=== PATIENT | male | born 1950 | race Caucasian/White ===

== ENCOUNTER 2019-09-03 14:21 | Inpatient (IN) | payer MEDICARE ==
[~2019-09-03 14:21] MED LIST: Iopamidol-370 76% 500 ML 1 ML ONE
[2019-09-03 15:47] LABS: CKMB 5.4 ng/mL (0-6.6)
[2019-09-03] MEDS ORDERED: Enoxaparin Sodium 100 MG/ML SYRINGE ONE ×2 (16:24→16:26)
--- NOTE | 2019-09-03 16:28 | CT ---
CT arteriogram chest with IV contrast and 3-D imaging HISTORY: Chest pain. Elevated d-dimer. FINDINGS: Large filling defects are present within the pulmonary arteries of each lobe. High clot bur den on the right. Moderate clot burden on the left. Right ventricle is unremarkable. Good contrast opacification of the thoracic aorta with normal branching of the great vessels. No focal parenchymal lung mass, infiltrate, pleural fluid, or pneumothorax. Nonspecific lymph nodes s cattered about the mediastinum. IMPRESSION: Bilateral pulmonary emboli with moderate to high overall clot burden. Findings were called to Dr. Manzano in the emergency department at 1616 hours. Code CR.
[2019-09-03] MEDS ORDERED: Bisacodyl 5 MG TAB PO PRN (17:26)
[2019-09-03] MEDS ORDERED: HYDROcodone/Acetaminophen 7.5/325 mg Tablet PO PRN (17:26)
[2019-09-03] MEDS ORDERED: HYDROcodone/Acetaminophen 5/325 mg Tablet PO PRN (17:26)
[2019-09-03] MEDS ORDERED: Calcium Carbonate 500 MG ChewTAB PO PRN (17:26)
[2019-09-03] MEDS ORDERED: Ondansetron PF 4 MG/2 ML Vial IVP PRN (17:26)
[2019-09-03] MEDS ORDERED: Ondansetron ODT 4 MG TAB PO PRN (17:26)
[2019-09-03] MEDS ORDERED: diphenhydrAMINE 25 MG CAP PO PRN (17:32)
[2019-09-03] MEDS ORDERED: Benzonatate 100 MG CAP PO PRN (17:32)
[2019-09-03] MEDS ORDERED: Melatonin 3 MG TAB PO PRN (17:32)
[2019-09-03] MEDS ORDERED: Labetalol HCl 100 MG/20 ML VIAL SLOW IVP PRN (17:32)
[2019-09-03] MEDS ORDERED: Docusate 100 MG CAP PO PRN (17:32)
--- NOTE | 2019-09-03 17:53 | PDOC.HHP ---
Hospitalist HPI - History of Present Illness Chest pressure and shortness of breath History of Present Illness: Very pleasant 69 year old gentleman with PMHx of enlarged prostate who recently underwent prostate biopsy on of this week presents with chest pressure and shortness of breath. Patient initially presented to [place] and was transferred for higher level of care for elevated troponin and elevated d- dimer. Patient also with PMHx of HTN, HLD, BPH, elevated PSA, and osteoarthritis. Patient status post biopsy of the prostate for an enlarged prostate with irregular shape and an elevated PSA - he has not been formally diagnosed with prostate cancer to date though. After the prostate biopsy, pateint has been more sedentary than normal in recovery. Patient yesterday with simple chores was winded and had to rest. No chest pain or shortness of breath yesterday. Today with walking less than 3 feet he was so short of breath he though he would collapse. Associated mid sternal chest pressure. Patient did not acutually fall, no LOC, no trauma, no palpitations, no definitive chest pain - just describes as pressure. CTA of the chest found to have massive bilateral PE with moderate to large clot burden. I find the patient in the ED, and surprisingly he looks much better in person the on paper. Patient breathing comfortably on room air, though does get winded when talking. Patient surrounded by family and loved ones who are able to aid in history. Patient admitted to ICU for close management. Hospitalist ROS - Review of Systems All other systems reviewed; all pertinent +/- noted in HPI/Subj Hospitalist History - Past Medical History Source: patient, family Cardiac: reports: HTN, Hyperlipidemia. denies: CAD, CHF Pulmonary: reports: high cholesterol, hypertension. 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 Elevated PSA and an irregular shaped prostate who underwent biopsy on 08/31/19) Musculoskeletal: reports: Osteoarthritis Renal/: reports: Benign prostatic enlarg. - Past Surgical History Past Surgical History: reports: Other (Jaw surgery, knee scope, spinal decompression. Prostate biopsy on 08/31/19 for irregular shape and elevated PSA) - Family History Family History: reports: hypertension - Social History Smoking Status: Never smoker Alcohol: reports: Rare Drugs: reports: none Living Situation: With Family Domestic Violence: Negative Activity level: independent ambulation - Exam General Appearance: NAD, awake alert Eye: PERRL, anicteric sclera ENT: normocephalic atraumatic, moist mucosa Neck: supple, symmetric, no lymphadenopathy Heart: no murmur, no gallops, no rubs Heart - other findings: Tachycardia Respiratory: CTAB, no wheezes, no rales, no ronchi Respiratory - other findings: Slightly deminished breath sounds at bases Gastrointestinal: soft, non-tender, non-distended, normal bowel sounds, no guarding, no rigidity Extremities: no edema Skin: no lesions, no rashes Neurological: cranial nerve grossly intact, normal sensation to touch, no focal deficits Musculoskeletal: generalized weakness Psychiatric: normal affect, normal behavior, A&O x 3 Hospitalist Results - Labs Lab results: CK-MB (CK-2) 5.4 ng/mL (0-6.6) 09/03/19 14:48 Troponin I 0.133 ng/mL (< 0.028) H 09/03/19 14:48 - Radiology Interpretation CT scan - chest Status: image reviewed by nh Hospitalist H&P A/P - Problem (1) Pulmonary embolism, bilateral Code(s): I26.99 - OTHER PULMONARY EMBOLISM WITHOUT ACUTE COR PULMONALE Status : Acute (2) Shortness of breath Code(s): R06.02 - SHORTNESS OF BREATH Status: Acute (3) Chest pain Code(s): R07.9 - CHEST PAIN, UNSPECIFIED Status: Acute (4) Elevated troponin Code(s): R79.89 - OTHER SPECIFIED ABNORMAL FINDINGS OF BLOOD CHEMISTRY Status : Acute (5) Prostate cancer Code(s): C61 - MALIGNANT NEOPLASM OF PROSTATE Status: Acute (6) Enlarged prostate Code(s): N40.0 - BENIGN PROSTATIC HYPERPLASIA WITHOUT LOWER URINRY TRACT SYMP Status: Acute (7) HTN (hypertension) Code(s): I10 - ESSENTIAL (PRIMARY) HYPERTENSION Status: Chronic (8) HLD (hyperlipidemia) Code(s): E78.5 - HYPERLIPIDEMIA, UNSPECIFIED Status: Chronic (9) Osteoarthritis Code(s): M19.90 - UNSPECIFIED OSTEOARTHRITIS, UNSPECIFIED SITE Status: Chronic - Plan Plan: Plan: Admit to ICU Critical care/ pulmonology consultation, recommendations appreciated Cardiology consultation, recommendations appreciated IV Lovenox 1mg/ kg BID Stat echo to eval for right heart strain, if right heart strain present may need to evaluate for thrombectomy supplemental oxygen as needed Patient with prostate biopsy on 08/31/19 and has been more sedentary than he would have been otherwise With irregularly shaped enlarged prostate and elevated PSA, he may be hypercoagulable from CA Colonoscopy about 10 years ago reported as normal Skin CA, s/p excision No other known CA Pain control Resume home medications as able Flomax for BPH Lisinopril for BP Atorvastatin for cholesterol GI PPX
[2019-09-03 18:34] LABS: Troponin I 0.077 ng/mL (< 0.028)
[2019-09-03 19:00] LABS: INR-International Normal Ratio 1.1; PTT 37.6 SEC (22.9-36.1); Prothrombin Time 14.2 SEC (12.0-14.7)
[2019-09-03 19:08] LABS: D-Dimer Test 12.27 *mcg/mL (0.27-0.43)
[2019-09-03 21:17] VITALS: BMI 24.6
[2019-09-03 21:40] LABS: Troponin I 0.089 ng/mL (< 0.028)
[2019-09-03] MEDS: Famotidine/PF 20 mg/2ml Vial SLOW IVP SCH (21:48)
[2019-09-03] MEDS: Famotidine 20 MG TAB PO SCH (21:49)
[2019-09-03] MEDS: Enoxaparin Sodium 80 MG/0.8 ML SYRINGE SC SCH (21:49)
[2019-09-04 03:53] LABS: #Eosinphils 0.1 thou/uL (0.0-0.7); #Lymphocytes 1.6 thou/uL (1.20-3.40); #Monocytes 0.6 thou/uL (0.11-0.59); #Neutrophils 3.6 thou/uL (1.40-6.50); %Basophils 0.4 % (0.0-1.0); %Eosinophils 1.8 % (0.0-10.0); %Monocytes 9.6 % (0.0-10.0); %Neutrophils 61.2 % (42.0-75.0); Hemoglobin 13.2 g/dL (14.0-18.0); Mean Corpuscular HGB CONC 34.1 g/dL (32.0-36.0); Mean Corpuscular Hemoglobin 30.6 pg (27.0-31.0); Mean Platelet Volume 6.8 fL (7.4-10.4); Platelet Count 172 thou/uL (130-400); RBC Distribution Width 11.8 % (11.5-14.5); Red Blood Cell (RBC) Count 4.31 mill/uL (4.70-6.10); White Blood Cell (WBC) Count 5.9 thou/uL (4.8-10.8)
[2019-09-04 04:02] LABS: Anion Gap 13 mmol/L (10-20); BUN (Urea Nitrogen) 15 mg/dL (8.4-25.7); Calc. Creatinine Clearance 94 mL/min (70-130); Calcium 8.5 mg/dL (7.8-10.44); Carbon Dioxide 22 mmol/L (23-31); Chloride 110 mmol/L (98-107); Estimated GFR-MDRD Greater than 90; Glucose 94 mg/dL (80-115); Sodium 141 mmol/L (136-145)
[2019-09-04] MEDS ORDERED: FLU VACC TS2019-20(65YR UP)/PF 180 MCG/0.5 ML SYRINGE IM ONE (09:00)
[2019-09-04] MEDS ORDERED: Prevnar 13-Val Conj/PF 0.5 ML SYRINGE IM ONE (09:00)
[2019-09-04] MEDS: Famotidine/PF 20 mg/2ml Vial SLOW IVP SCH ×2 (09:35→19:56)
[2019-09-04] MEDS: Enoxaparin Sodium 80 MG/0.8 ML SYRINGE SC SCH ×2 (09:51→20:00)
[2019-09-04] MEDS: Famotidine 20 MG TAB PO SCH ×2 (09:51→20:00)
--- NOTE | 2019-09-04 10:05 | ULT ---
Bilateral lower extremity venous duplex sonogram HISTORY: Pulmonary emboli. Bilateral leg pain and edema. FINDINGS: Right leg: Good color and spectral Doppler flow within the common femoral, femoral and deep femoral, popliteal and posterior tibial veins. Incomplete compressibility of the right popliteal vein were internal echoes are also present. Left leg: Occlusive thrombus within the femoral vein and popliteal vein. Good color and spectral Dopp ler flow within the common femoral vein and greater saphenous junction and the posterior tibial vein. IMPRESSION: DVT involving each lower extremity, left greater than right, as detailed above.
[2019-09-04] MEDS: Acetaminophen 325 MG TAB PO PRN ×2 (12:03→19:57)
[2019-09-04 12:29] LABS: Cardiolipin IgA Ab 1.3 APL-U/mL (<14 Negative); Cardiolipin IgG Ab 0.6 GPL-U/mL (<10 Negative); Cardiolipin IgM Ab 1.2 MPL-U/mL (<10 Negative); EliA APS New Method **** NEW METHOD ****
[2019-09-04 13:15] LABS: Protein C Activity 97 % (78-152)
--- NOTE | 2019-09-04 14:10 | CON ---
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 No fever or chills. Then, went to the ER in [place]. His EKG was unremarkable. The chest x-ray was normal. He had a CT angio done, which showed bilateral pulmonary emboli. He was given Lovenox and transferred here, he presents to the ICU. PAST MEDICAL HISTORY: Pertinent for recent prostate biopsy, hypertension, and hyperlipidemia. PAST SURGICAL HISTORY: Knee surgery, spinal decompression. SOCIAL HISTORY: Alcohol, social. Tobacco, former smoker, did not smoke much. HOME MEDICATIONS: Include; 1. Flomax 0.4. 2. Tizanidine 2 mg. 3. Prinivil 20. 4. Atorvastatin 10. 5. Flexeril 10 three times a day. ALLERGIES: NONE. SOCIAL AND FAMILY HISTORY: Otherwise, unremarkable. No previous history of clots, etc. History of blood clots in the family. PHYSICAL EXAMINATION: VITAL SIGNS: Saturations are 97% on room air, blood pressure 144/83, respiratory rate of 18. CHEST: No wheezing or crackles. CARDIAC: Normal S1 and S2. No gallops. ABDOMEN: No masses. LABORATORY DATA: His white count is 5000, H and H are normal, and platelet count is normal. Chemistry profile is normal. Troponin is slightly elevated. IMAGING DATA: CT angio shows bilateral pulmonary emboli. Echocardiogram shows normal EF, normal right ventricular size. ASSESSMENT: 1. Bilateral pulmonary emboli, etiology unclear. 2. Recent prostate biopsy. 3. Hypertension. 4. High cholesterol. 5. Chronic back issues. PLAN: Continue Lovenox for another 24 to 48 hours, switch to Eliquis, six months of anticoagulation minimum. This is 70 minutes consultation, 50% direct patient care. Job ID: [id number]
--- NOTE | 2019-09-04 15:23 | PDOC.HOSPP ---
- Subjective Encounter Date: 09/04/19 Encounter Time: 15:22 Subjective: Doing fine. No complaints. No SOB. - Objective Vital Signs & Weight: Vital Signs (12 hours) Temp Pulse Ox 09/04/19 15:00 98.1 F 09/04/19 11:00 98.4 F 09/04/19 07:20 97 09/04/19 07:00 98.2 F 09/04/19 04:00 98.1 F Weight Weight 171 lb 15.369 oz Most Recent Monitor Data Heart Rate from ECG 67 NIBP 125/74 NIBP BP-Mean 91 Respiration from ECG 19 SpO2 92 I&O: 09/03/19 09/04/19 09/05/19 06:59 06:59 06:59 Intake Total 240 840 Output Total 850 1600 Balance -610 -760 Result Diagrams: 09/04/19 03:23 09/04/19 03:23 Hospitalist ROS - Medication Medications: Active Medications Generic Name Dose Route Start Last Admin Trade Name Freq PRN Reason Stop Dose Admin Acetaminophen 650 mg 09/03/19 17:26 09/04/19 12:03 Tylenol PO 650 mg Q4H PRN Administration Headache/Fever/Mild Pain (1-3) Enoxaparin Sodium 80 mg 09/03/19 21:00 09/04/19 09:51 Lovenox SC 80 mg 0900,2100 LAM Administration Famotidine 20 mg 09/03/19 21:00 09/04/19 09:35 Pepcid SLOW IVP Not Given Q12HR LAM Famotidine 20 mg 09/03/19 21:00 09/04/19 09:51 Pepcid PO 20 mg BID LAM Administration - Exam General Appearance: NAD, awake alert Heart: RRR, no murmur, no gallops, no rubs, normal peripheral pulses Respiratory: CTAB, no wheezes, no rales, no ronchi, normal chest expansion, no tachypnea, normal percussion Gastrointestinal: soft, non-tender, non-distended, normal bowel sounds, no palpable masses, no hepatomegaly, no splenomegaly, no bruit Extremities: no cyanosis, no clubbing, no edema Musculoskeletal: normal tone Psychiatric: normal affect, normal behavior, A&O x 3 Hosp A/P (1) Elevated troponin Code(s): R79.89 - OTHER SPECIFIED ABNORMAL FINDINGS OF BLOOD CHEMISTRY Status : Acute (2) Enlarged prostate Code(s): N40.0 - BENIGN PROSTATIC HYPERPLASIA WITHOUT LOWER URINRY TRACT SYMP Status: Acute (3) Pulmonary embolism, bilateral Code(s): I26.99 - OTHER PULMONARY EMBOLISM WITHOUT ACUTE COR PULMONALE Status : Acute (4) Shortness of breath Code(s): R06.02 - SHORTNESS OF BREATH Status: Acute (5) HLD (hyperlipidemia) Code(s): E78.5 - HYPERLIPIDEMIA, UNSPECIFIED Status: Chronic (6) HTN (hypertension) Code(s): I10 - ESSENTIAL (PRIMARY) HYPERTENSION Status: Chronic (7) DVT (deep venous thrombosis) Code(s): I82.409 - ACUTE EMBOLISM AND THOMBOS UNSP DEEP VN UNSP LOWER EXTREMITY Status: Acute - Plan Bilateral LE DVT's with large burden PE. Amazingly asymptomatic and stable. VSS. Continue with Lovenox and transition to Eliquis tomorrow if doing well. Unclear if he actually has prostate cancer.
--- NOTE | 2019-09-04 15:55 | CON ---
DATE OF CONSULTATION: HISTORY OF PRESENT ILLNESS: Naren Green is a 69-year-old white male, who recently underwent prostate biopsy on 08/31/2019. He apparently had an elevated PSA; however, this does not appear to have been performed at [facility]. He states he has been active since prostate biopsy except he has not done any lifting. He did drive in a car approximately to [place] 2 hours away. He then on 09/03 presented complaining of increased shortness of breath and chest pressure. He initially presented to the [facility] and was transferred here for further evaluation. PAST MEDICAL HISTORY: Remarkable for; 1. Hypertension. 2. Hypercholesterolemia. 3. Possible prostate cancer. 4. No history of diabetes. MEDICATIONS: 1. Atorvastatin 10 daily. 2. Flexeril 10 mg t.i.d. p.r.n. 3. Prinivil 20 mg daily. 4. Flomax 0.4 daily. 5. Tizanidine 2 mg nightly. ALLERGIES: NONE. OPERATIONS: 1. Jaw surgery. 2. Knee arthroscopy. 3. Back surgery. 4. Prostate biopsy. SOCIAL HISTORY: He stopped smoking 20 years ago. He rarely drinks. FAMILY HISTORY: Remarkable for father who had stent placement. REVIEW OF SYSTEMS: A 12-point review of systems is otherwise unremarkable. He denies any leg pain. PHYSICAL EXAMINATION: VITAL SIGNS: Blood pressure 148/82 and pulse of 71. HEENT: JENNIFER. NECK: Supple. CHEST: Clear. CARDIAC: S1 and S2 are normal without any S3, S4, or murmurs. There was normal carotid upstroke without bruits. ABDOMEN: Normal bowel sounds without tenderness or organomegaly. EXTREMITIES: No clubbing, cyanosis, or edema. There is no leg tenderness. NEUROLOGIC: Grossly intact. SKIN: Warm and dry. LABORATORY DATA: EKG revealed normal sinus rhythm and is normal. Troponin-I at 0.133, CK 214, and CK-MB 5.4. Sodium 141, potassium 4.0, chloride 110, carbon dioxide 22, BUN 15, and creatinine 0.83. BNP 24.7. Chest CTA revealed bilateral pulmonary emboli with moderate to high overall clot burden. Lower extremity Doppler revealed DVT involving both legs, left greater than right. Echocardiogram revealed ejection fraction of 60% to 65%. The aortic valve was calcified, but not stenotic. There is moderate tricuspid regurgitation. Severely elevated pulmonary artery pressure of 66 mm. IMPRESSION: 1. Acute pulmonary embolism with acute cor pulmonale. 2. Probable prostate cancer, biopsy result is pending. He certainly may be hypercoagulable due to this. 3. Elevated troponin with [id number] myocardial infarction type 2. 4. Hypertension. 5. Hyperlipidemia. PLAN: The patient currently is anticoagulated with Lovenox 1 mg/kg b.i.d., eventually, need to be transitioned to oral anticoagulation. No further cardiac evaluation is warranted at this time; however, consideration should be given to nuclear scan as an outpatient. Job ID: [id number] [facility]
[2019-09-05 05:01] LABS: Cardiac Risk 4.2 (Less than 4.5)
--- NOTE | 2019-09-05 08:51 | PRG ---
DATE OF SERVICE: 09/05/2019 SUBJECTIVE: This morning, he is doing better. Less pain. Less shortness of breath. OBJECTIVE: VITAL SIGNS: Saturations are 98% on room air, pulse 64, blood pressure 130/78, and respirations 18. CHEST: No wheezing or crackles. CARDIAC: Normal S1 and S2. No gallops. ABDOMEN: No masses. ASSESSMENT: Bilateral pulmonary emboli, deep venous thrombosis. PLAN: Switch over to Eliquis. Transfer out of the ICU. Continue PT. He can be discharged hopefully home in the next 24 to 48 hours. Job ID: [id number]
[2019-09-05] MEDS: Famotidine 20 MG TAB PO SCH ×2 (08:53→20:35)
[2019-09-05] MEDS: Apixaban 5 MG TAB PO SCH ×2 (08:55→20:35)
--- NOTE | 2019-09-05 15:41 | PDOC.HOSPP ---
- Subjective Subjective: Continues to do well. No complaints. No chest pain or SOB. Got up with PT and PT signed off. - Objective Vital Signs & Weight: Vital Signs (12 hours) Temp Pulse Pulse BP BP Pulse Ox Pulse Ox 09/05/19 12:00 98.2 F 09/05/19 10:12 76 157/90 H 95 09/05/19 10:00 74 74 158/89 H 157/90 H 100 09/05/19 08:00 100 09/05/19 07:00 97.8 F 09/05/19 04:00 98.6 F Pulse Ox 09/05/19 12:00 09/05/19 10:12 09/05/19 10:00 95 09/05/19 08:00 09/05/19 07:00 09/05/19 04:00 Weight Weight 171 lb 15.369 oz Most Recent Monitor Data Heart Rate from ECG 70 NIBP 158/89 NIBP BP-Mean 112 Respiration from ECG 23 SpO2 99 I&O: 09/04/19 09/05/19 09/06/19 06:59 06:59 06:59 Intake Total 240 1300 2180 Output Total 850 3325 451 Balance -784 -7597 8355 Result Diagrams: 09/04/19 03:23 09/04/19 03:23 Hospitalist ROS - Medication Medications: Active Medications Generic Name Dose Route Start Last Admin Trade Name Freq PRN Reason Stop Dose Admin Acetaminophen 650 mg 09/03/19 17:26 09/04/19 19:57 Tylenol PO 650 mg Q4H PRN Administration Headache/Fever/Mild Pain (1-3) Apixaban 10 mg 09/05/19 09:00 09/05/19 08:55 Eliquis PO 10 mg BID LAM Administration Famotidine 20 mg 09/03/19 21:00 09/05/19 08:53 Pepcid PO 20 mg BID LAM Administration - Exam General Appearance: NAD, awake alert Neck: supple, symmetric, no JVD, no thyromegaly, no lymphadenopathy, no carotid bruit Heart: RRR, no murmur, no gallops, no rubs, normal peripheral pulses Respiratory: CTAB, no wheezes, no rales, no ronchi, normal chest expansion, no tachypnea, normal percussion Gastrointestinal: soft, non-tender, non-distended, normal bowel sounds, no palpable masses, no hepatomegaly, no splenomegaly, no bruit Extremities: no cyanosis, no clubbing, no edema Skin: normal turgor, no lesions, no rashes Neurological: cranial nerve grossly intact, no focal deficits Musculoskeletal: normal tone, normal strength, no muscle wasting Psychiatric: normal affect, normal behavior, A&O x 3 Hosp A/P (1) Pulmonary embolism, bilateral Code(s): I26.99 - OTHER PULMONARY EMBOLISM WITHOUT ACUTE COR PULMONALE Status : Acute (2) Shortness of breath Code(s): R06.02 - SHORTNESS OF BREATH Status: Acute (3) Elevated troponin Code(s): R79.89 - OTHER SPECIFIED ABNORMAL FINDINGS OF BLOOD CHEMISTRY Status : Acute (4) Enlarged prostate Code(s): N40.0 - BENIGN PROSTATIC HYPERPLASIA WITHOUT LOWER URINRY TRACT SYMP Status: Acute (5) HLD (hyperlipidemia) Code(s): E78.5 - HYPERLIPIDEMIA, UNSPECIFIED Status: Chronic (6) HTN (hypertension) Code(s): I10 - ESSENTIAL (PRIMARY) HYPERTENSION Status: Chronic (7) DVT (deep venous thrombosis) Code(s): I82.409 - ACUTE EMBOLISM AND THOMBOS UNSP DEEP VN UNSP LOWER EXTREMITY Status: Acute - Plan Bilateral LE DVT's with large burden PE. Amazingly asymptomatic and stable. VSS. Transitioned to Eliquis. Transfer to floor. Anticipate discharge tomorrow. Unclear if he actually has prostate cancer. Had biopsy that likely precipitated the DVT/PE. Discussed the Eliquis and risks associated with it. All questions were answered.
[2019-09-05] MEDS ORDERED: Atorvastatin Calcium 20 MG TAB PO SCH (21:00)
[2019-09-06] MEDS ORDERED: Sodium Chloride 0.9% 10 ML ONE (07:50)
[2019-09-06] MEDS: Famotidine 20 MG TAB PO SCH (09:59)
[2019-09-06] MEDS: Apixaban 5 MG TAB PO SCH (09:59)
--- NOTE | 2019-09-06 10:08 | PRG ---
DATE OF SERVICE: 09/06/2019 SUBJECTIVE: This morning, he is awake, alert, and responsive. No leg pain. No shortness of breath. OBJECTIVE: VITAL SIGNS: Temperature 98, pulse 68, respirations 16, saturations are 96% on room air, blood pressure 147/97 today. Chest: No wheezing or crackles. CARDIAC: Normal S1 and S2. No gallops. ABDOMEN: No mass. ASSESSMENT AND PLAN: PE DVT on Eliquis. Eliquis for a week, thereafter 10 mg, thereafter 5 mg twice a day for a minimum of 6 months if not a year. Can be seen in the office in about 6 weeks to 2 months. Otherwise, continue all of the medication. Follow up with his primary care physician. Job ID: [id number]
[2019-09-06 11:38] VITALS: BP 145/73; TEMP 97.5
[2019-09-06 16:48] LABS: Factor VIII Test 164.6 % ACTIVE (56-157)
--- NOTE | 2019-09-07 05:15 | PQF ---
[employer] Reports Winform ViewerHAMGARRICK CLINE DAVID R MD [id number] CLINICAL DOCUMENTATION CLARIFICATION FORM: POST DISCHARGE Addendum to original discharge summary date: ____ Late entry note date: __ DATE: 09/07/2019 ATTN:TELMA ORDAZ MD Please exercise your independent, professional judgment in responding to the clarification form. Clinical indicators are provided on the bottom of this form for your review Please check appropriate box(s): [ ] Pulmonary Embolism is a complication of current/recent surgery [ ] Pulmonary Embolism is not a complication of current/recent surgery [ ] Other diagnosis [ x ] Unable to determine In addition, please specify: Present on Admission (POA): [ ] Yes [ ] No [ ] Unable to determine CLINICAL INDICATORS - SIGNS / SYMPTOMS / LABS Chest pressure and SOB - Documented in H&P on 09/03 by Maxim Ling DO After prostate biopsy patient has been more sedentary than normal in recovery - Documented in H&P on 09/03 by Maxim Ling DO Bilateral Pulmonary Emboli etiology unclear - Documented in Consult report on by Iliana Rocha MD Patient underwent Prostate Biopsy on 09/10/2019 - Documented in H&P on 09/03 by Maxim Ling DO RISK FACTORS HTN Elevated PSA Type 2 NSTEMI TREATMENT: CTA chest Pulmonology consultation IV Lovenox 1mg - Documented in H&P on 09/03 by Maxim Ling DO Echocardiogram Eliquis [employer] [id number] [email or web address]. All Rights Reserved [email or web address] [not provided] (This form is maintained as a part of the permanent medical record) [facility]
--- NOTE | 2019-09-07 05:19 | DIS ---
DATE OF ADMISSION: 09/03/2019 DATE OF DISCHARGE: 09/06/2019 DISCHARGE DIAGNOSES: 1. Bilateral pulmonary embolus. 2. Bilateral lower extremity deep venous thrombosis. 3. Acute dyspnea secondary to bilateral pulmonary embolus, resolving. 4. Benign prostatic hyperplasia with negative biopsies. 5. Hyperlipidemia, stable. 6. Hypertension, stable. CONSULTATIONS: 1. Dr. Barrientos with Pulmonology Service. 2. Dr. Jimmy Cardozo with Cardiology Service. PERTINENT LABORATORY AND X-RAY FINDINGS: Troponin I ranged between 0.077 to 0.133. Total cholesterol 174, triglycerides 94, HDL 41, and LDL 114. CBC showed a hemoglobin of 13, hematocrit 39. CT angiogram of the chest dated 09/03/2019, showed bilateral pulmonary emboli with moderate to high overall clot burden. Bilateral lower extremity venous Doppler study dated 09/04/2019, showed DVT involving each lower extremity, left greater than right. 2D transthoracic echocardiogram dated 09/03/2019, showed ejection fraction of 60% to 65%. Moderate stenosis of the aortic valve. Moderate tricuspid regurgitation. Elevated pulmonary artery pressure at 66 mmHg. Moderate tricuspid regurgitation. HOSPITAL COURSE: The patient was initially admitted to the telemetry unit after presenting with shortness of breath and chest pressure. The patient underwent extensive evaluation including CT angiogram of the chest confirming the evidence of bilateral pulmonary embolus with significant clot burden. In addition, the patient was discovered with bilateral lower extremity deep venous thrombosis. The patient was initially placed on Lovenox 1 mg/kg b.i.d. and evaluated by the Pulmonology/Critical Care Service. The patient received oxygen supplementation and general pulmonary supportive care while receiving anticoagulation throughout the hospital course. The patient converted to oral Eliquis in preparation for outpatient management. The patient was also evaluated by the Cardiology Service due to mild elevation of troponin I in the context of bilateral pulmonary embolus and deep venous thrombosis. No specific intervention was recommended regarding the troponin I elevation. Overall, the patient did remain clinically stable during the hospital course, tolerating regular oral intake, ambulating without assistance or difficulty and maintaining O2 saturations on room air greater than 90%. I have examined the patient at the time of discharge and discussed followup instructions. The patient verbalized understanding and in agreement and ready for discharge on 09/06/2019. DISCHARGE MEDICATIONS: 1. Eliquis 10 mg p.o. b.i.d. x7 days, followed by 5 mg p.o. b.i.d. with 6 months treatment, minimum. 2. Lipitor 10 mg p.o. daily. 3. Flexeril 10 mg p.o. t.i.d. p.r.n. 4. Lisinopril 20 mg p.o. daily. 5. Flomax 0.4 mg p.o. daily. 6. Tizanidine 2 mg p.o. at bedtime. FOLLOWUP: The patient may follow up with his primary care provider, Dr. Manish Espinoza, within 7 days of discharge. CONDITION ON DISCHARGE: Stable. ACTIVITY: Ad-cynthia. DIET: Regular. CODE STATUS: Full. DISPOSITION: To home on 09/06/2019. Job ID: [id number]
[2019-09-07 10:41] LABS: HEX PHOS LA Tube 1 67.9 SEC; HEX PHOS LA Tube 2 59.5 SEC; Hexagonal Phospholipid Neut 8.4 SEC (0-8.0)
== END 2019-09-06 12:35 | disposition home or self-care (01) | DRG 175 ==
LOC: ERS 14:21 → CCU 19:36 → 2NO 09-05 19:41
PROVIDERS: ADMIT Internal Medicine; ATTEND Internal Medicine
DX: I26.09 Other pulmonary embolism with acute cor pulmonale (principal); I21.4 Non-ST elevation (NSTEMI) myocardial infarction; I82.493 Acute embolism and thrombosis of other specified deep vein of lower extremity, bilateral; E78.5 Hyperlipidemia, unspecified; I10 Essential (primary) hypertension; N40.0 Benign prostatic hyperplasia without lower urinary tract symptoms; M19.91 Primary osteoarthritis, unspecified site; C61 Malignant neoplasm of prostate; Z87.891 Personal history of nicotine dependence; Z79.899 Other long term (current) drug therapy
CPT/HCPCS: 36415; 55700; 71275; 80048; 80061; 81240; 81241; 83090; 85025; 85240; 85300; 85303; 85305; 85307; 85379; 85598; 85610; 85730; 86147; 88305; 88344; 93005; 93306; 93970; 96372; 99214; G0463; J0696; J1650; Q9967

== ENCOUNTER 2020-12-03 08:55 | Outpatient (CLI) | payer MEDICARE, OTHER ==
[2020-12-03 10:02] LABS: Estimated GFR-MDRD - POC Greater than 90
[2020-12-03] MEDS ORDERED: Magnevist 469MG/ML 20 ML VIAL ONE (11:06)
== END 2020-12-03 08:56 | disposition home or self-care (01) ==
LOC: TBSIIMAG 08:55
PROVIDERS: ATTEND Urology
DX: R97.20 Elevated prostate specific antigen [PSA] (principal); Z98.890 Other specified postprocedural states
CPT/HCPCS: 72197; 82565

== ENCOUNTER 2020-12-03 12:36 | Outpatient (CLI) | payer MEDICARE, OTHER | END 2020-12-03 12:37 | disposition home or self-care (01) | LOC: BICULT 12:36 | PROVIDERS: ATTEND Urology | DX: N40.1 Benign prostatic hyperplasia with lower urinary tract symptoms (principal); R97.20 Elevated prostate specific antigen [PSA]; R29.898 Other symptoms and signs involving the musculoskeletal system; Z98.890 Other specified postprocedural states | CPT/HCPCS: 72197; 76770; 82565; A9579 ==

== ENCOUNTER 2021-02-20 13:31 | Outpatient (CLI) | payer MEDICARE, OTHER ==
[2021-02-20 15:27] LABS: Bilirubin Neg (Negative); Blood, Urine Negative (Negative); Clarity Clear (Clear); Glucose, Urine (Dipstick) Normal (Negative); Ketone, Urine Negative (Negative); Leukocyte Negative (Negative); Nitrite Negative (Negative); Protein, Urine (Dipstick) Negative (Neg-Trace); Urobilinogen Normal mg/dL (Less than 2)
[2021-02-20 15:49] LABS: Anion Gap 11 mmol/L (10-20); BUN (Urea Nitrogen) 29 mg/dL (8.4-25.7); Calc. Creatinine Clearance 0 mL/min (70-130); Calcium 9.3 mg/dL (7.8-10.44); Carbon Dioxide 27 mmol/L (23-31); Chloride 105 mmol/L (98-107); Glucose 80 mg/dL (80-115); Potassium 4.9 mmol/L (3.5-5.1); Sodium 138 mmol/L (136-145)
[2021-02-20 15:51] LABS: #Eosinphils 0.1 10x3/uL (0.0-0.5); #Monocytes 0.5 10x3/uL (0.0-1.1); #Neutrophils 3.3 10x3/uL (1.5-8.4); %Basophils 0.5 % (0.0-2.0); %Eosinophils 2.5 % (0.0-6.0); %Lymphocytes 28.9 % (18.0-47.0); %Monocytes 9.3 % (0.0-10.0); %Neutrophils 58.4 % (40.0-75.0); Hemoglobin 13.3 g/dL (13.5-17.5); Mean Corpuscular HGB CONC 32.4 g/dL (32.0-36.0); Mean Corpuscular Hemoglobin 29.8 pg (27.0-33.0); Mean Corpuscular Volume 91.7 fl (81.2-95.1); Mean Platelet Volume 9.9 fl (7.4-10.4); Platelet Count 235 10x3/uL (150-450); RBC Distribution Width 13.2 % (11.5-14.5); Red Blood Cell (RBC) Count 4.47 10x6/uL (4.32-5.72); White Blood Cell (WBC) Count 5.6 10x3/uL (3.5-10.5)
[2021-02-20 16:09] LABS: RBC/HPF None Seen HPF (0-3)
[2021-02-20 17:24] LABS: Prothrombin Time 10.5 sec (9.5-12.1)
[2021-02-21 02:37] LABS: SARS-CoV-2 NAA Rapid Test Not Detected (NotDetected)
== END 2021-02-20 13:32 | disposition home or self-care (01) ==
LOC: LABBT 13:31
PROVIDERS: ATTEND Orthopaedic Surgery
DX: Z01.818 Encounter for other preprocedural examination (principal); M17.12 Unilateral primary osteoarthritis, left knee; Z20.822 Contact with and (suspected) exposure to COVID-19
CPT/HCPCS: 80048; 81001; 85025; 85610; 87081; U0003; U0005; 87635; U0002

== ENCOUNTER 2021-02-20 14:45 | Inpatient (IN) | payer MEDICARE, OTHER ==
[2021-02-20 14:05] VITALS: BMI 28.3
[2021-02-25] MEDS ORDERED: Sodium Chloride 0.9% 100 ML ONE (11:57)
[2021-02-25] MEDS ORDERED: Tranexamic Acid 1,000 MG/10 ML VIAL ONE (11:57)
[2021-02-25] MEDS ORDERED: Vancomycin 1.5 GRAM/300 ML BAG 1.5 GM in Premix Bag 1 BAG IVPB SCH (12:15)
[2021-02-25] MEDS ORDERED: Fentanyl 100 MCG/2 ML VIAL ONE ×4 (12:39→15:46)
[2021-02-25] MEDS ORDERED: Midazolam HCl 2 mg/2 ml Vial ONE ×2 (12:39→15:43)
[2021-02-25] MEDS ORDERED: Fentanyl 100 MCG/2 ML VIAL IV PRN (12:53)
[2021-02-25] MEDS ORDERED: Promethazine HCl 25 MG/ML VIAL IM PRN ×3 (13:00→14:31)
[2021-02-25] MEDS ORDERED: traMADol HCl 50 MG TAB PO PRN ×3 (13:00→20:34)
[2021-02-25] MEDS ORDERED: HYDROcodone/Acetaminophen 10/325 mg Tablet PO PRN (13:00)
[2021-02-25] MEDS ORDERED: Ropivacaine HCl/PF 250 ML in Premix Bag 1 BAG NERVE BLCK SCH (13:00)
[2021-02-25] MEDS ORDERED: Zolpidem Tartrate 5 MG TAB PO PRN ×2 (13:00→13:18)
[2021-02-25] MEDS ORDERED: Ondansetron PF 4 MG/2 ML Vial IVP PRN ×2 (13:00→13:18)
[2021-02-25] MEDS ORDERED: Acetaminophen 325 MG TAB PO PRN (13:18)
[2021-02-25] MEDS ORDERED: Metoprolol Tartrate 5 MG/5 ML VIAL ONE ×2 (14:00→16:25)
[2021-02-25] MEDS ORDERED: PROPOFOL 200 MG/20 ML VIAL ONE (14:00)
[2021-02-25] MEDS ORDERED: Bupivacaine HCl 0.5%/Epinephrine 1:200,000/PF 30 ml Vial ONE (14:00)
[2021-02-25] MEDS ORDERED: Ketorolac Tromethamine 30 MG/ML VIAL ONE (14:00)
[2021-02-25] MEDS ORDERED: Lidocaine 1% PF 5 ML VIAL ONE ×3 (14:00→17:30)
[2021-02-25] MEDS ORDERED: Ropivacaine 2% HCl/PF (20 MG/10 ML VIAL) ONE ×2 (14:00→17:30)
[2021-02-25] MEDS ORDERED: HYDROmorphone 2 MG/ML VIAL SLOW IVP PRN (14:31)
[2021-02-25] MEDS ORDERED: Meperidine HCl/PF 25 MG/ML VIAL SLOW IVP PRN (14:31)
[2021-02-25] MEDS ORDERED: Promethazine HCl 25 MG/ML VIAL SLOW IVP PRN (14:31)
[2021-02-25] MEDS ORDERED: HYDROmorphone 2 MG/ML VIAL ONE (16:17)
[2021-02-25] MEDS ORDERED: Metoclopramide HCl 10 MG/2 ML VIAL ONE (16:25)
[2021-02-25] MEDS ORDERED: Ropivacaine 0.5% HCl/PF (150 MG/30 ML VIAL) ONE (17:30)
[2021-02-25] MEDS ORDERED: hydrALAZINE 20 MG/ML VIAL ONE (18:02)
[2021-02-25] MEDS: Sodium Chloride 0.9% 1,000 ML IV SCH (19:22)
[2021-02-25] MEDS: Ketorolac Tromethamine 30 MG/ML VIAL IVP SCH (19:23)
[2021-02-25] MEDS: Lisinopril 20 MG TAB PO SCH (20:20)
[2021-02-25] MEDS: CEFAZOLIN 2 GM in Premix Bag 1 BAG IVPB SCH (20:20)
[2021-02-25] MEDS: Atorvastatin Calcium 40 MG TAB PO SCH (20:22)
[2021-02-25] MEDS: Tamsulosin HCl 0.4 MG CAP PO SCH (20:25)
[2021-02-25] MEDS: Senokot S 8.6-50 MG TAB PO SCH (20:25)
[2021-02-25] MEDS: Aspirin 81 mg Enteric Coated Tablet PO SCH (20:25)
[2021-02-25] MEDS: Ferrous Gluconate 324 MG TAB PO SCH (20:25)
[2021-02-25] MEDS: HYDROcodone/Acetaminophen 10/325 mg Tablet PO PRN (20:39)
[2021-02-25] MEDS: diphenhydrAMINE 25 MG CAP PO PRN (20:40)
[2021-02-26] MEDS: Ketorolac Tromethamine 30 MG/ML VIAL IVP SCH ×5 (00:21→23:11)
[2021-02-26] MEDS: Sodium Chloride 0.9% 1,000 ML IV SCH ×3 (00:22→18:42)
[2021-02-26] MEDS: HYDROcodone/Acetaminophen 10/325 mg Tablet PO PRN ×7 (00:22→21:25)
[2021-02-26] MEDS: Cyclobenzaprine 10 MG TAB PO PRN ×2 (01:25→21:25)
[2021-02-26] MEDS: CEFAZOLIN 2 GM in Premix Bag 1 BAG IVPB SCH (03:15)
[2021-02-26] MEDS: diphenhydrAMINE 25 MG CAP PO PRN ×3 (05:20→21:25)
[2021-02-26 05:43] LABS: Hemoglobin 12.1 g/dL (14.0-18.0); Mean Corpuscular HGB CONC 33.9 g/dL (32.0-36.0); Mean Corpuscular Hemoglobin 30.9 pg (27.0-31.0); Mean Corpuscular Volume 91.3 fL (78.0-98.0); Mean Platelet Volume 7.1 fL (7.4-10.4); Platelet Count 206 thou/uL (130-400); RBC Distribution Width 12.1 % (11.5-14.5); Red Blood Cell (RBC) Count 3.93 mill/uL (4.70-6.10); White Blood Cell (WBC) Count 9.2 thou/uL (4.8-10.8)
[2021-02-26] MEDS: Enoxaparin Sodium 40 MG/0.4 ML SYRINGE SC SCH (08:12)
[2021-02-26] MEDS: Multivitamin W/ Minerals 1 TAB PO SCH (08:12)
[2021-02-26] MEDS: Aspirin 81 mg Enteric Coated Tablet PO SCH ×2 (08:12→19:58)
[2021-02-26] MEDS: Lisinopril 20 MG TAB PO SCH ×2 (08:12→19:59)
[2021-02-26] MEDS: Senokot S 8.6-50 MG TAB PO SCH ×2 (08:12→19:59)
[2021-02-26] MEDS: Ferrous Gluconate 324 MG TAB PO SCH ×2 (08:12→19:58)
[2021-02-26] MEDS: Atorvastatin Calcium 40 MG TAB PO SCH (19:58)
[2021-02-26] MEDS: Tamsulosin HCl 0.4 MG CAP PO SCH (19:59)
[2021-02-27] MEDS: Sodium Chloride 0.9% 1,000 ML IV SCH (04:23)
[2021-02-27] MEDS: diphenhydrAMINE 25 MG CAP PO PRN (05:49)
[2021-02-27] MEDS: HYDROcodone/Acetaminophen 10/325 mg Tablet PO PRN ×2 (05:49→09:49)
[2021-02-27] MEDS: Ketorolac Tromethamine 30 MG/ML VIAL IVP SCH ×2 (05:49→10:56)
[2021-02-27] MEDS: Multivitamin W/ Minerals 1 TAB PO SCH (08:12)
[2021-02-27] MEDS: Ferrous Gluconate 324 MG TAB PO SCH (08:12)
[2021-02-27] MEDS: Lisinopril 20 MG TAB PO SCH (08:13)
[2021-02-27] MEDS: Senokot S 8.6-50 MG TAB PO SCH (08:13)
[2021-02-27] MEDS: Aspirin 81 mg Enteric Coated Tablet PO SCH (08:13)
[2021-02-27] MEDS: Enoxaparin Sodium 40 MG/0.4 ML SYRINGE SC SCH (08:13)
[2021-02-27 11:02] VITALS: TEMP 98.2
[2021-02-27 11:52] VITALS: BP 154/90
== END 2021-02-27 13:30 | disposition home or self-care (01) | DRG 470 ==
LOC: SURG A 02-25 10:28 → SJJU 02-25 18:34
PROVIDERS: ADMIT Orthopaedic Surgery; ATTEND Orthopaedic Surgery
PROC: 0SRD0J9 Replacement of Left Knee Joint with Synthetic Substitute, Cemented, Open Approach (ICD-10-PCS; principal; 2021-02-25)
DX: M17.12 Unilateral primary osteoarthritis, left knee (principal); I10 Essential (primary) hypertension; E78.5 Hyperlipidemia, unspecified; Z96.651 Presence of right artificial knee joint; F17.200 Nicotine dependence, unspecified, uncomplicated; Z85.828 Personal history of other malignant neoplasm of skin; Z98.890 Other specified postprocedural states; Z79.01 Long term (current) use of anticoagulants; Z79.899 Other long term (current) drug therapy; Z71.6 Tobacco abuse counseling
CPT/HCPCS: 36415; 85027; C1713; C1776; J0360; J0690; J1170; J1650; J1885; J2250; J2704; J2765; J2795; J3010; J3490; Q0163

== ENCOUNTER 2021-06-20 13:13 | Outpatient (CLI) | payer MEDICARE, OTHER ==
[2021-06-20 12:35] LABS: #Eosinphils 0.2 10x3/uL (0.0-0.5); #Monocytes 0.7 10x3/uL (0.0-1.1); #Neutrophils 3.5 10x3/uL (1.5-8.4); %Basophils 0.7 % (0.0-2.0); %Eosinophils 2.7 % (0.0-6.0); %Lymphocytes 26.8 % (18.0-47.0); %Monocytes 11.8 % (0.0-10.0); %Neutrophils 57.8 % (40.0-75.0); Hemoglobin 13.4 g/dL (13.5-17.5); Mean Corpuscular HGB CONC 32.4 g/dL (32.0-36.0); Mean Corpuscular Hemoglobin 29.6 pg (27.0-33.0); Mean Corpuscular Volume 91.4 fl (81.2-95.1); Platelet Count 256 10x3/uL (150-450); Red Blood Cell (RBC) Count 4.52 10x6/uL (4.32-5.72)
[2021-06-20 12:37] LABS: Anion Gap 14 mmol/L (10-20); BUN (Urea Nitrogen) 16 mg/dL (8.4-25.7); Calc. Creatinine Clearance 0 mL/min (70-130); Carbon Dioxide 25 mmol/L (23-31); Chloride 108 mmol/L (98-107); Glucose 84 mg/dL (80-115); Potassium 5.6 mmol/L (3.5-5.1); Sodium 141 mmol/L (136-145)
[2021-06-21 17:40] LABS: SARS-CoV-2 PCR by NAA Not Detected (NotDetected)
== END 2021-06-20 13:14 | disposition home or self-care (01) ==
LOC: LABBT 13:13
PROVIDERS: ATTEND Surgery
DX: Z01.818 Encounter for other preprocedural examination (principal); K40.90 Unilateral inguinal hernia, without obstruction or gangrene, not specified as recurrent; Z20.822 Contact with and (suspected) exposure to COVID-19
CPT/HCPCS: 80048; 85025; 93005; U0003; U0005; 93010

== ENCOUNTER 2021-06-25 09:53 | Day surgery (SDC) | payer MEDICARE, OTHER ==
[2021-06-24 09:36] VITALS: BMI 27.9
[2021-06-25] MEDS ORDERED: ceFAZolin 2 GM/DEX 5% 100 ML BAG ONE (10:22)
[2021-06-25] MEDS ORDERED: Lidocaine 2% Jelly 5 ML TUBE ONE (10:45)
[2021-06-25] MEDS ORDERED: Fentanyl 100 MCG/2 ML VIAL ONE (10:45)
[2021-06-25] MEDS ORDERED: HYDROmorphone 0.5 MG/0.5 ML SYRINGE ONE (10:45)
[2021-06-25] MEDS ORDERED: Lidocaine 1% w/Epinephrine 1:100K 20 ML VIAL ONE (10:55)
[2021-06-25] MEDS ORDERED: Bupivacaine 0.25% HCL 30 ML VIAL ONE (10:55)
[2021-06-25] MEDS ORDERED: Glycopyrrolate 0.2 MG/ML 5 ML SYRINGE ONE (12:05)
[2021-06-25] MEDS ORDERED: ePHEDrine 50 MG/ML VIAL ONE (12:05)
[2021-06-25] MEDS ORDERED: Ondansetron PF 4 MG/2 ML Vial ONE (12:05)
[2021-06-25] MEDS ORDERED: Lidocaine 1% PF 5 ML VIAL ONE (12:05)
[2021-06-25] MEDS ORDERED: Rocuronium Bromide 10 MG/ML (10ML VIAL) ONE (12:05)
[2021-06-25] MEDS ORDERED: PROPOFOL 200 MG/20 ML VIAL ONE (12:05)
[2021-06-25] MEDS ORDERED: Dexamethasone 20 MG/5 ML VIAL ONE (12:05)
[2021-06-25] MEDS ORDERED: HYDROcodone/Acetaminophen 5/325 mg Tablet ONE (14:46)
== END 2021-06-25 15:18 | disposition home or self-care (01) ==
LOC: SDC 09:53
PROVIDERS: ATTEND Surgery
PROC: 0YU54JZ Supplement Right Inguinal Region with Synthetic Substitute, Percutaneous Endoscopic Approach (ICD-10-PCS; principal; 2021-06-25)
PROC: 0WUF0JZ Supplement Abdominal Wall with Synthetic Substitute, Open Approach (ICD-10-PCS; 2021-06-25)
DX: K40.90 Unilateral inguinal hernia, without obstruction or gangrene, not specified as recurrent (principal); K42.9 Umbilical hernia without obstruction or gangrene; I10 Essential (primary) hypertension; E78.5 Hyperlipidemia, unspecified; Z86.711 Personal history of pulmonary embolism; Z86.718 Personal history of other venous thrombosis and embolism; Z87.891 Personal history of nicotine dependence; Z79.01 Long term (current) use of anticoagulants; Z79.899 Other long term (current) drug therapy
CPT/HCPCS: C1781; J1100; J1170; J2405; J2704; J3010; J3490; S0020

== ENCOUNTER 2022-02-13 13:01 | Outpatient (CLI) | payer MEDICARE, OTHER ==
[2022-02-13 13:40] LABS: Bilirubin Neg (Negative); Blood, Urine Negative (Negative); Clarity Clear (Clear); Glucose, Urine (Dipstick) Normal (Negative); Ketone, Urine Negative (Negative); Leukocyte Negative (Negative); Nitrite Negative (Negative); Protein, Urine (Dipstick) Negative (Neg-Trace); Specific Gravity, Urine 1.025 (1.002-1.036); Urobilinogen Normal mg/dL (Less than 2)
[2022-02-13 13:40] LABS: Hemoglobin 13.3 g/dL (13.5-17.5); Mean Corpuscular HGB CONC 33.6 g/dL (32.0-36.0); Mean Corpuscular Hemoglobin 31.1 pg (27.0-33.0); Mean Corpuscular Volume 92.5 fl (81.2-95.1); Mean Platelet Volume 9.3 fl (7.4-10.4); Platelet Count 247 10x3/uL (150-450); RBC Distribution Width 14.5 % (11.5-14.5); Red Blood Cell (RBC) Count 4.28 10x6/uL (4.32-5.72); White Blood Cell (WBC) Count 5.9 10x3/uL (3.5-10.5)
[2022-02-13 13:59] LABS: PTT 26.8 sec (22.0-33.0); Prothrombin Time 10.9 sec (9.5-12.1)
[2022-02-13 14:04] LABS: Anion Gap 15 mmol/L (10-20); BUN (Urea Nitrogen) 29 mg/dL (8.4-25.7); Calc. Creatinine Clearance 0 mL/min (70-130); Calcium 9.1 mg/dL (7.8-10.44); Carbon Dioxide 22 mmol/L (23-31); Chloride 108 mmol/L (98-107); Glucose 113 mg/dL (80-115); Potassium 4.6 mmol/L (3.5-5.1); Sodium 140 mmol/L (136-145)
[2022-02-13 14:13] LABS: Bacteria/HPF None Seen HPF (None Seen); RBC/HPF 0-3 HPF (0-3); Squamous Epithelial None Seen HPF (0-3); WBC/HPF 0-3 HPF (0-3)
[2022-02-13 23:57] LABS: SARS-CoV-2 PCR by NAA Not Detected (NotDetected)
== END 2022-02-13 13:02 | disposition home or self-care (01) ==
LOC: LABBT 13:01
PROVIDERS: ATTEND Urology
DX: Z01.818 Encounter for other preprocedural examination (principal); Z12.5 Encounter for screening for malignant neoplasm of prostate; N52.9 Male erectile dysfunction, unspecified; I26.99 Other pulmonary embolism without acute cor pulmonale; I82.413 Acute embolism and thrombosis of femoral vein, bilateral; K40.90 Unilateral inguinal hernia, without obstruction or gangrene, not specified as recurrent; N40.1 Benign prostatic hyperplasia with lower urinary tract symptoms; R39.15 Urgency of urination; R35.1 Nocturia; R97.20 Elevated prostate specific antigen [PSA]; R82.998 Other abnormal findings in urine; R55 Syncope and collapse; Z98.890 Other specified postprocedural states; Z20.822 Contact with and (suspected) exposure to COVID-19
CPT/HCPCS: 80048; 81001; 85027; 85610; 85730; 87086; 93005; U0003; U0005; 93010

== ENCOUNTER 2022-02-18 05:50 | Day surgery (SDC) | payer MEDICARE, OTHER ==
[2022-02-17 10:57] VITALS: BMI 28.7
[2022-02-18] MEDS ORDERED: B & O ONE (06:55)
[2022-02-18] MEDS ORDERED: fentaNYL Citrate/PF 100 MCG/2 ML SYRINGE ONE (07:01)
[2022-02-18] MEDS ORDERED: Levofloxacin 500 mg/D5W 100 ml Premix Bag ONE (07:08)
[2022-02-18] MEDS ORDERED: Oxybutynin 5 MG TAB ONE (08:19)
[2022-02-18] MEDS ORDERED: Phenazopyridine HCl 100 MG TAB ONE ×2 (08:21→08:23)
== END 2022-02-18 10:45 | disposition home or self-care (01) ==
LOC: SDC 05:50
PROVIDERS: ATTEND Urology
PROC: 0T7D8DZ Dilation of Urethra with Intraluminal Device, Via Natural or Artificial Opening Endoscopic (ICD-10-PCS; principal; 2022-02-18)
DX: N40.1 Benign prostatic hyperplasia with lower urinary tract symptoms (principal); R39.14 Feeling of incomplete bladder emptying; N39.41 Urge incontinence; R39.11 Hesitancy of micturition; R39.12 Poor urinary stream; R35.1 Nocturia; I10 Essential (primary) hypertension; E78.5 Hyperlipidemia, unspecified; Z87.891 Personal history of nicotine dependence; Z79.01 Long term (current) use of anticoagulants; Z79.899 Other long term (current) drug therapy; N52.9 Male erectile dysfunction, unspecified; Z86.711 Personal history of pulmonary embolism; Z86.718 Personal history of other venous thrombosis and embolism
CPT/HCPCS: J1956; L8699

== ENCOUNTER 2022-05-05 14:44 | Outpatient (CLI) | payer MEDICARE, OTHER | END 2022-05-05 14:45 | disposition home or self-care (01) | LOC: ULT 14:44 | PROVIDERS: ATTEND Urology | DX: N43.40 Spermatocele of epididymis, unspecified (principal); N45.1 Epididymitis; N40.1 Benign prostatic hyperplasia with lower urinary tract symptoms | CPT/HCPCS: 76870; 81001; 87086; 93976 ==

== ENCOUNTER 2022-07-13 17:05 | Inpatient (IN) | payer MEDICARE ==
[2022-07-13] MEDS ORDERED: Gabapentin 300 MG CAP PO PRN (18:21)
[2022-07-13 19:15] VITALS: BMI 28.3
[2022-07-13] MEDS ORDERED: Lisinopril 20 MG TAB PO SCH (21:00)
[2022-07-13] MEDS ORDERED: Atorvastatin Calcium 40 MG TAB PO SCH (21:00)
[2022-07-13] MEDS: Sodium Chloride 0.9% 1,000 ML IV SCH (21:04)
[2022-07-13] MEDS: Atorvastatin Calcium 20 MG TAB PO SCH ×2 (21:05→21:39)
[2022-07-13] MEDS: Finasteride 5 MG TAB PO SCH (21:06)
[2022-07-13] MEDS: Tamsulosin HCl 0.4 MG CAP PO SCH (21:07)
[2022-07-14 01:33] LABS: SARS-CoV-2 NAA Rapid Test Not Detected (NotDetected)
[2022-07-14 04:49] LABS: #Eosinphils 0.2 thou/uL (0.0-0.7); #Lymphocytes 1.7 thou/uL (1.20-3.40); #Monocytes 0.5 thou/uL (0.11-0.59); #Neutrophils 2.8 thou/uL (1.40-6.50); %Basophils 0.6 % (0.0-1.0); %Lymphocytes 32.3 % (21.0-51.0); %Monocytes 9.6 % (0.0-10.0); %Neutrophils 53.6 % (42.0-75.0); Mean Corpuscular HGB CONC 32.1 g/dL (32.0-36.0); Mean Corpuscular Hemoglobin 31.1 pg (27.0-31.0); Mean Corpuscular Volume 96.8 fL (78.0-98.0); Mean Platelet Volume 7.2 fL (7.4-10.4); Platelet Count 185 thou/uL (130-400); Red Blood Cell (RBC) Count 4.18 mill/uL (4.70-6.10); White Blood Cell (WBC) Count 5.2 thou/uL (4.8-10.8)
[2022-07-14 04:59] LABS: Hemoglobin A1c 5.6 % (4.0-6.0)
[2022-07-14 05:39] LABS: Anion Gap 10 mmol/L (10-20); BUN (Urea Nitrogen) 16 mg/dL (8.4-25.7); Calc. Creatinine Clearance 113 mL/min (70-130); Calcium 8.6 mg/dL (7.8-10.44); Carbon Dioxide 24 mmol/L (23-31); Cardiac Risk 2.6 (Less than 4.5); Chloride 108 mmol/L (98-107); Cholesterol 108 mg/dl (< 200 Desired); Estimated GFR 96; Glucose 96 mg/dL (80-115); HDL Cholesterol 42 mg/dL (>60 Neg Risk); LDL Cholesterol, Calculated 57 mg/dL; Potassium 4.2 mmol/L (3.5-5.1); Sodium 138 mmol/L (136-145); Triglycerides 43 mg/dL (Less than 150)
[2022-07-14] MEDS: Aspirin 81 mg Enteric Coated Tablet PO SCH (09:42)
[2022-07-14] MEDS: Sodium Chloride 0.9% 1,000 ML IV SCH (13:15)
[2022-07-14] MEDS: Acetaminophen 325 MG TAB PO PRN (18:34)
[2022-07-14] MEDS: Atorvastatin Calcium 20 MG TAB PO SCH (20:43)
[2022-07-14] MEDS: Finasteride 5 MG TAB PO SCH (20:44)
[2022-07-14] MEDS: Tamsulosin HCl 0.4 MG CAP PO SCH (20:45)
[2022-07-15 05:14] LABS: #Eosinphils 0.1 thou/uL (0.0-0.7); #Lymphocytes 1.4 thou/uL (1.20-3.40); #Monocytes 0.7 thou/uL (0.11-0.59); #Neutrophils 5.1 thou/uL (1.40-6.50); %Basophils 0.5 % (0.0-1.0); %Lymphocytes 18.6 % (21.0-51.0); Hemoglobin 14.5 g/dL (14.0-18.0); Mean Corpuscular HGB CONC 32.6 g/dL (32.0-36.0); Mean Corpuscular Hemoglobin 31.4 pg (27.0-31.0); Mean Corpuscular Volume 96.2 fL (78.0-98.0); Mean Platelet Volume 7.4 fL (7.4-10.4); Platelet Count 210 thou/uL (130-400); RBC Distribution Width 13.2 % (11.5-14.5); Red Blood Cell (RBC) Count 4.63 mill/uL (4.70-6.10); White Blood Cell (WBC) Count 7.4 thou/uL (4.8-10.8)
[2022-07-15 05:58] LABS: Anion Gap 11 mmol/L (10-20); BUN (Urea Nitrogen) 14 mg/dL (8.4-25.7); Calc. Creatinine Clearance 112 mL/min (70-130); Calcium 9.1 mg/dL (7.8-10.44); Carbon Dioxide 22 mmol/L (23-31); Chloride 110 mmol/L (98-107); Estimated GFR 95; Glucose 97 mg/dL (80-115); Potassium 4.1 mmol/L (3.5-5.1); Sodium 139 mmol/L (136-145)
[2022-07-15] MEDS: Acetaminophen 325 MG TAB PO PRN (08:39)
[2022-07-15] MEDS: Aspirin 81 mg Enteric Coated Tablet PO SCH (08:39)
[2022-07-15 16:31] VITALS: BP 185/97; TEMP 98.8
[2022-07-15] MEDS ORDERED: Atorvastatin Calcium 40 MG TAB PO SCH (21:00)
[2022-07-17] MEDS ORDERED: FLU VACC QS2022-23(65YR UP)/PF 240 MCG/0.7 ML SYRINGE IM ONE (09:00)
== END 2022-07-15 18:14 | disposition home or self-care (01) | DRG 65 ==
LOC: ERS 17:05 → NEURO 18:48
PROVIDERS: ADMIT Hospitalist; ATTEND Internal Medicine
PROC: 4A00X4Z Measurement of Central Nervous Electrical Activity, External Approach (ICD-10-PCS; principal; 2022-07-14)
DX: I63.9 Cerebral infarction, unspecified (principal); G81.94 Hemiplegia, unspecified affecting left nondominant side; I10 Essential (primary) hypertension; E78.5 Hyperlipidemia, unspecified; C61 Malignant neoplasm of prostate; I65.22 Occlusion and stenosis of left carotid artery; N40.0 Benign prostatic hyperplasia without lower urinary tract symptoms; R73.9 Hyperglycemia, unspecified; R47.1 Dysarthria and anarthria; R29.810 Facial weakness; M19.90 Unspecified osteoarthritis, unspecified site; R29.712 NIHSS score 12; Z20.822 Contact with and (suspected) exposure to COVID-19; Z86.718 Personal history of other venous thrombosis and embolism; Z85.828 Personal history of other malignant neoplasm of skin; Z86.711 Personal history of pulmonary embolism; Z79.01 Long term (current) use of anticoagulants; Z79.899 Other long term (current) drug therapy; Z87.891 Personal history of nicotine dependence
CPT/HCPCS: 36415; 70551; 80048; 80061; 83036; 85025; 93306; 95706; 95819; 95957; 99285; J7050

== ENCOUNTER 2023-01-15 06:53 | Day surgery (SDC) | payer MEDICARE ==
[2023-01-14 12:56] VITALS: BMI 27.8
[2023-01-15] MEDS ORDERED: Lidocaine 1% PF 5 ML VIAL ONE (10:00)
[2023-01-15] MEDS ORDERED: PROPOFOL 200 MG/20 ML VIAL ONE (10:00)
== END 2023-01-15 11:16 | disposition home or self-care (01) ==
LOC: SDC 06:53
PROVIDERS: ATTEND Internal Medicine Gastroenterology
PROC: 0DJD8ZZ Inspection of Lower Intestinal Tract, Via Natural or Artificial Opening Endoscopic (ICD-10-PCS; principal; 2023-01-15)
PROC: 0DB38ZX Excision of Lower Esophagus, Via Natural or Artificial Opening Endoscopic, Diagnostic (ICD-10-PCS; 2023-01-15)
DX: Z12.11 Encounter for screening for malignant neoplasm of colon (principal); K21.00 Gastro-esophageal reflux disease with esophagitis, without bleeding; K22.10 Ulcer of esophagus without bleeding; K57.30 Diverticulosis of large intestine without perforation or abscess without bleeding; K64.8 Other hemorrhoids; K44.9 Diaphragmatic hernia without obstruction or gangrene; I10 Essential (primary) hypertension; E78.5 Hyperlipidemia, unspecified; M06.9 Rheumatoid arthritis, unspecified; G89.29 Other chronic pain; M54.9 Dorsalgia, unspecified; M79.606 Pain in leg, unspecified; Z80.0 Family history of malignant neoplasm of digestive organs; Z86.711 Personal history of pulmonary embolism; Z86.718 Personal history of other venous thrombosis and embolism; Z86.73 Personal history of transient ischemic attack (TIA), and cerebral infarction without residual deficits; Z79.01 Long term (current) use of anticoagulants; Z79.82 Long term (current) use of aspirin; Z79.899 Other long term (current) drug therapy
CPT/HCPCS: 43239; G0105; 88305; J2704